=== PATIENT | male | born 1950 | race Hispanic/Latino ===

== ENCOUNTER 2018-04-06 17:08 | Emergency (ER) | payer MEDICARE ==
[2018-04-06 19:02] LABS: Hematocrit 39.2 % (35.5-45.6); Hemoglobin 13.8 gm/dl (11.8-15.2); Mean Corpuscular HGB Conc 35 % (32-34); Mean Corpuscular Hemoglobin 38 pg (28-32); Mean Corpuscular Volume 107 fl (84-94); Platelet Count 112 K/mm3 (140-440); Red Blood Count 3.65 M/mm3 (3.65-5.03); Red Cell Distribution Width 14.1 % (13.2-15.2)
[2018-04-06 19:14] LABS: INR 2.86 (0.87-1.13)
[2018-04-06 19:15] LABS: Partial Thromboplastin Time 41.7 Sec. (24.2-36.6)
[2018-04-06 19:35] LABS: BUN/Creatinine Ratio 23; Blood Urea Nitrogen 18 mg/dL (9-20); Calcium 8.6 mg/dL (8.4-10.2); Hemolysis Index 63
--- NOTE | 2018-04-06 19:41 | Cat Scan Report ---
FINAL REPORT PROCEDURE: CT HEAD/BRAIN WO CON TECHNIQUE: Computerized tomography of the head was performed without contrast material. HISTORY: headache x 5 days COMPARISON: No prior studies are available for comparison. FINDINGS: There is an isodense right frontoparietal subdural hemorrhage, which measures up to 6 millimeters in thickness. There are several foci of higher density, suggesting acute on chronic hemorrhage. There is also isodense subdural hemorrhage tracking along the anterior falx, measuring up to 5 millimeters in thickness. There is more acute appearing subdural hemorrhage tracking along the posterior falx, measuring up to 4 millimeters in thickness. There is a small amount of subdural hemorrhage in the left posterior parietal region. There is no significant underlying mass effect. No midline shift. There is no hydrocephalus. There is no CT evidence of acute territorial infarction. No parenchymal hemorrhage is seen. Calvarium is intact. Visualized paranasal sinuses and mastoids are aerated. IMPRESSION: Bilateral acute on subacute subdural hemorrhage, without significant underlying mass effect
--- NOTE | 2018-04-06 21:04 | Emergency Department Report ---
ED Headache HPI - General Chief Complaint: Headache Stated Complaint: HEADACHE Time Seen by Provider: 04/06/18 19:43 Source: patient Exam Limitations: no limitations - History of Present Illness Initial Comments: Mrs. Julio is a 68-year-old male who presents with 5 days of headache. He woke up on Tuesday morning with bitemporal headache. intense waxing and waning in intensity. Pain is now 5 out of 10. He the diet 3 weeks ago with [employer]. 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 He denies paralysis. Denies trauma. His last seizure was over 20 years ago. Timing/Duration: other (5 days) Quality: severe Head Injury Location: temporal Recent Head Trauma: no recent headache/trauma Associated Symptoms: fatigue, other (sluggish) Allergies/Adverse Reactions: Allergies No Known Allergies Allergy (Unverified 04/06/18 17:36) Home Medications: Ambulatory Orders oxyCODONE /ACETAMINOPHEN [Percocet 5/325] 1 tab PO Q6HR PRN #15 tablet 04/07/18 ED Review of Systems ROS: Stated complaint: HEADACHE Other details as noted in HPI Comment: All other systems reviewed and negative Constitutional: denies: fever, malaise Cardiovascular: denies: chest pain ED Past Medical Hx - Past Medical History Previous Medical History?: Yes Hx Deep Vein Thrombosis: Yes Hx Seizures: Yes Additional medical history: basal cell carcinoma. BPH. gastritis. gstrointestinal stromal tumor of small bowel, malignant - Surgical History Past Surgical History?: Yes Additional Surgical History: IVC filter - Social History Smoking Status: Never Smoker Substance Use Type: None - Medications Home Medications: Home Medications Medication Instructions Recorded Confirmed Last Taken Type oxyCODONE /ACETAMINOPHEN [Percocet 1 tab PO Q6HR PRN #15 tablet 04/07/18 Unknown Rx 5/325] ED Physical Exam - General Limitations: No Limitations General appearance: alert, in no apparent distress - Head Head exam: Present: atraumatic, normocephalic - Eye Eye exam: Present: normal appearance - ENT ENT exam: Present: mucous membranes moist - Neck Neck exam: Present: normal inspection - Respiratory Respiratory exam: Present: normal lung sounds bilaterally. Absent: respiratory distress, wheezes, rales, rhonchi - Cardiovascular Cardiovascular Exam: Present: regular rate, normal rhythm, normal heart sounds. Absent: systolic murmur, diastolic murmur, rubs, gallop - GI/Abdominal GI/Abdominal exam: Present: soft, normal bowel sounds. Absent: distended, tenderness, guarding, rebound - Rectal Rectal exam: Present: deferred - Extremities Exam Extremities exam: Present: normal inspection - Back Exam Back exam: Present: normal inspection - Neurological Exam Neurological exam: Present: alert, oriented X3, CN II-XII intact, normal gait. Absent: motor sensory deficit - Psychiatric Psychiatric exam: Present: normal affect, normal mood - Skin Skin exam: Present: warm, dry, intact, normal color. Absent: rash ED Course Vital Signs 04/06/18 04/06/18 17:36 20:07 Temperature 98.5 F 98.6 F Pulse Rate 66 70 Respiratory 16 18 Rate Blood Pressure 148/67 Blood Pressure 171/81 [Right] O2 Sat by Pulse 99 99 Oximetry ED Medical Decision Making - Lab Data Result diagrams: 04/06/18 18:54 04/06/18 18:54 Laboratory Results - last 24 hr 04/06/18 04/06/18 04/06/18 18:54 18:54 18:54 WBC 7.0 RBC 3.65 Hgb 13.8 Hct 39.2 MCV 107 H MCH 38 H MCHC 35 H RDW 14.1 Plt Count 112 L PT 32.0 H INR 2.86 H APTT 41.7 H Sodium 138 Potassium 4.6 Chloride 102.3 Carbon Dioxide 23 Anion Gap 17 BUN 18 Creatinine 0.8 Estimated GFR > 60 BUN/Creatinine Ratio 23 Glucose 172 H Calcium 8.6 Total Bilirubin Direct Bilirubin Indirect Bilirubin AST ALT Alkaline Phosphatase Total Protein Albumin Albumin/Globulin Ratio 04/06/18 18:54 WBC RBC Hgb Hct MCV MCH MCHC RDW Plt Count PT INR APTT Sodium Potassium Chloride Carbon Dioxide Anion Gap BUN Creatinine Estimated GFR BUN/Creatinine Ratio Glucose Calcium Total Bilirubin 0.70 Direct Bilirubin < 0.2 Indirect Bilirubin 0.5 AST 22 ALT 15 Alkaline Phosphatase 66 Total Protein 6.6 Albumin 3.9 Albumin/Globulin Ratio 1.4 Vital Signs - 24 hr 04/06/1818 17:36 20:07 Temperature 98.5 F 98.6 F Pulse Rate 66 70 Respiratory 16 18 Rate Blood Pressure 148/67 Blood Pressure 171/81 [Right] O2 Sat by Pulse 99 99 Oximetry - Radiology Data Radiology results: report reviewed Multiple small foci of subdural hemorrhage bilateral - Medical Decision Making Mrs. Mathur is a pleasant 68-year-old male with 5 days of headache bitemporal. Accidentally in intensity. He takes warfarin for bilateral DVT. He has spontaneous subdural hematoma bilateral small without mass effect. Dr. Painting neurosurgeon and [facility] recommended repeat CT scan in [address] is stable without change considering coagulation, Dr. Painting recommends f/u in clinic. He suggested DR. Kelley. Repeat head CT at 6 hours showed stable findings without change. Patient understands to follow-up with Dr. James Kelley. I have prescribed Percocet for pain. Critical Care Time: Yes (40) Critical care attestation.: If time is entered above; I have spent that time in minutes in the direct care of this critically ill patient, excluding procedure time. Patient required multiple reassessments. Multiple interventions. ED Disposition Clinical Impression: Subdural hematoma, Warfarin anticoagulation, Headache Disposition: DC- TO HOME OR SELFCARE Is pt being admited?: No Does the pt Need Aspirin: No Condition: Stable Instructions: Subdural Hematoma (ED) Additional Instructions: Please follow-up with neurosurgeon at [facility] Dr. James Kelley number [phone] Prescriptions: oxyCODONE /ACETAMINOPHEN [Percocet 5/325] 1 tab PO Q6HR PRN #15 tablet PRN Reason: Pain Referrals: PRIMARY CARE, [Primary Care Provider] - 3-5 Days Time of Disposition: 01:58
[2018-04-06 21:33] LABS: Alanine Aminotransferase 15 units/L (7-56); Albumin 3.9 g/dL (3.9-5)
[2018-04-06 21:36] LABS: Bilirubin,Direct < 0.2 mg/dL (0-0.2)
--- NOTE | 2018-04-07 01:20 | Cat Scan Report ---
FINAL REPORT EXAM: CT HEAD/BRAIN WO CON HISTORY: subdural hematoma repeat COMPARISON: CT of the head from April 06, 2018. TECHNIQUE: Contiguous axial images were obtained. FINDINGS: There is stable acute on subacute bilateral subdural hematomas along the cerebral convexities. No significant mass effect. Collection along the right cerebral convexity measures up to 5 millimeters in greatest thickness and on the left measures up to 5-6 millimeters in greatest thickness. No midline shift. Thin subdural hemorrhage along the falx measuring 5 millimeters. Trace subdural hemorrhage along the tentorium. No acute intraparenchymal hemorrhage. Stable mild volume loss and chronic small vessel ischemic disease. Calcification bilateral basal ganglia and benign scattered calcifications within white matter. Mild mucosal thickening the paranasal sinuses. Mastoid air cells are clear. Calvarium is grossly intact. Ocular globes are grossly unremarkable. IMPRESSION: Stable acute on subacute subdural hematomas along the cerebral convexities, falx, and tentorial leaf. No associated mass effect. No acute intraparenchymal hemorrhage. Stable mild volume loss and chronic small vessel ischemic disease.
[2018-04-07 02:15] VITALS: BP 136/78
== END 2018-04-07 02:15 | disposition home or self-care (01) ==
LOC: ED 17:08
DX: S06.5X0A Traumatic subdural hemorrhage without loss of consciousness, initial encounter (principal); Z86.718 Personal history of other venous thrombosis and embolism; X58.XXXA Exposure to other specified factors, initial encounter; Y93.89 Activity, other specified; Y92.89 Other specified places as the place of occurrence of the external cause; Y99.8 Other external cause status
CPT/HCPCS: 36415; 70450; 80048; 80074; 85027; 85610; 85730; 99291

== ENCOUNTER 2022-07-15 09:15 | Emergency (ER) | payer MEDICARE ==
[2022-07-15] MEDS ORDERED: TETANUS,DIPH,PERTUSS(ACELL) VACCINE 0.5 ML SYRINGE IM ONE (11:40)
[2022-07-15] MEDS ORDERED: ACETAMINOPHEN W/CODEINE 300-30 MG TAB PO ONE (11:40)
[2022-07-15] MEDS ORDERED: SULFAMETHOXAZOLE/TRIMETHOPRIM 800/160MG DS TAB PO ONE (11:41)
[2022-07-15] MEDS ORDERED: NEOMY 3.5 MG/BACIT 400 UNITS/POLY B 5000 UNITS/GM OINT PACKET TP ONE (11:45)
--- NOTE | 2022-07-15 11:45 | Emergency Department Report ---
ED Extremity Problem HPI - General Chief complaint: Extremity Problem,Nontraumatic Stated complaint: BLISTER ON LEGS Time Seen by Provider: 07/15/22 09:54 Source: patient Mode of arrival: Ambulatory Limitations: Physical Limitation - History of Present Illness Initial comments: 72-year-old white female with past medical history of DVT, cancer, and seizure disorder presents to the emergency department for evaluation of wound to left lower leg. He states that 3 to 4 days ago, he was cooking and some grease splashed on his hands and lower leg. He states that he later developed blister to left lower leg that has since opened up and now he has an open sore to area. He states that he has noticed small amount of purulent drainage from area. He denies fever, abdominal pain, nausea, and vomiting, but states that he has 6 out of 10 pain to the area. MD Complaint: extremity pain, extremity swelling -: Gradual, days(s) (3-4) Location: left, lower extremity History of Same: No -: No myalgia, No arthralgia, No fever, No associated dyspnea, No associated chest pain Radiation: none Severity scale (0 -10): 6 Quality: aching Consistency: constant Associated Symptoms: denies: chest pain, shortness of breath, fever, myalgias, arthralgias, rash - Related Data Previous Rx's Medication Instructions Recorded Last Taken Type oxyCODONE /ACETAMINOPHEN [Percocet 1 tab PO Q6HR PRN #15 tablet 04/07/18 Unknown Rx 5/325] Acetaminophen/Codeine [Tylenol 1 tab PO Q6H PRN #12 tab 07/15/22 Unknown Rx /Codeine # 3 tab] Mupirocin [Bactroban 2%] 1 applic TP BID #1 tube 07/15/22 Unknown Rx Sulfamethoxazole/Trimethoprim 1 each PO BID 7 Days #14 tab 07/15/22 Unknown Rx [Bactrim DS TAB] Allergies Allergy/AdvReac Type Severity Reaction Status Date / Time No Known Allergies Allergy Verified 07/15/22 09:39 ED Review of Systems ROS: Stated complaint: BLISTER ON LEGS Other details as noted in HPI Comment: All other systems reviewed and negative Constitutional: denies: chills, fever ENT: denies: congestion Respiratory: denies: shortness of breath Cardiovascular: denies: chest pain, palpitations Gastrointestinal: denies: abdominal pain, nausea, vomiting Musculoskeletal: back pain Neurological: denies: headache, weakness ED Past Medical Hx - Past Medical History Hx Deep Vein Thrombosis: Yes Hx Seizures: Yes Additional medical history: basal cell carcinoma. BPH. gastritis. gstrointestinal stromal tumor of small bowel, malignant - Surgical History Additional Surgical History: IVC filter - Social History Smoking Status: Never Smoker Substance Use Type: None - Medications Home Medications: Home Medications Medication Instructions Recorded Confirmed Last Taken Type oxyCODONE /ACETAMINOPHEN [Percocet 1 tab PO Q6HR PRN #15 tablet 04/07/18 Unknown Rx 5/325] Acetaminophen/Codeine [Tylenol 1 tab PO Q6H PRN #12 tab 07/15/22 Unknown Rx /Codeine # 3 tab] Mupirocin [Bactroban 2%] 1 applic TP BID #1 tube 07/15/22 Unknown Rx Sulfamethoxazole/Trimethoprim 1 each PO BID 7 Days #14 tab 07/15/22 Unknown Rx [Bactrim DS TAB] ED Physical Exam - General Limitations: Physical Limitation General appearance: alert, in no apparent distress - Head Head exam: Present: atraumatic, normocephalic - Eye Eye exam: Present: normal appearance. Absent: conjunctival injection, periorbital swelling, periorbital tenderness - Neck Neck exam: Present: normal inspection. Absent: tenderness, lymphadenopathy - Respiratory Respiratory exam: Present: normal lung sounds bilaterally. Absent: respiratory distress, wheezes, rales - Cardiovascular Cardiovascular Exam: Present: regular rate, normal heart sounds - GI/Abdominal GI/Abdominal exam: Present: soft, normal bowel sounds. Absent: distended, tenderness, guarding, rebound, rigid - Expanded Lower Extremity Exam Left Lower Leg exam: Present: full ROM, tenderness, swelling, erythema. Absent: normal inspection (Open blister 6 cm x 12 cm noted to the leg. Small amount of purulent drainage noted. Erythema noted around the entire surface of open blister. Swelling noted to the entire leg.), abrasion, laceration Ankle exam: Present: swelling Foot/Toe exam: Present: normal inspection Neuro vascular tendon exam: Present: no vascular compromise. Absent: pulse defi cit, abnormal cap refill, extremity cold to touch, pallor Gait: Positive: observed and normal - Back Exam Back exam: Present: normal inspection. Absent: CVA tenderness (R), CVA tenderness (L) - Neurological Exam Neurological exam: Present: alert, oriented X3 - Psychiatric Psychiatric exam: Present: normal affect, normal mood - Skin Skin exam: Present: warm, dry, normal color ED Course Vital Signs 07/15/22 09:32 Temperature 97.9 F Pulse Rate 82 Blood Pressure 120/65 [Left] O2 Sat by Pulse 97 Oximetry ED Medical Decision Making - Medical Decision Making 72-year-old white female with past medical history of DVT, cancer, and seizure disorder presents to the emergency department for evaluation of wound to left lower leg. He states that 3 to 4 days ago, he was cooking and some grease splashed on his hands and lower leg. He states that he later developed blister to left lower leg that has since opened up and now he has an open sore to area. He states that he has noticed small amount of purulent drainage from area. He denies fever, abdominal pain, nausea, and vomiting, but states that he has 6 out of 10 pain to the area. Physical exam consistent with left lower extremity cellulitis. Tdap updated. Patient be discharged home with 7-day course of Bactrim along with Tylenol 3 to use as needed for pain. He is advised to take medications as prescribed and follow-up with his primary care provider if no improvement or worsening symptoms. He is advised to return to the emergency department if he develops fever or any worsening symptoms. He verbalizes understanding of and agreement with plan of care. Critical care attestation.: If time is entered above; I have spent that time in minutes in the direct care of this critically ill patient, excluding procedure time. ED Disposition Clinical Impression: Left leg cellulitis Disposition: 01 HOME / SELF CARE / HOMELESS Is pt being admited?: No Does the pt Need Aspirin: No Condition: Stable Instructions: Cellulitis, Adult, [id number] Additional Instructions: Take medications as prescribed. Follow up with your primary care provider if no improvement or worsening symptoms. Return to ed if you develop fever and as needed. Prescriptions: Sulfamethoxazole/Trimethoprim [Bactrim DS TAB] 1 each PO BID 7 Days #14 tab Mupirocin [Bactroban 2%] 1 applic TP BID #1 tube Acetaminophen/Codeine [Tylenol /Codeine # 3 tab] 1 tab PO Q6H PRN #12 tab PRN Reason: Pain , Severe (7-10) Referrals: CARBUCCIA,WILFRID, MD [Staff Physician] - 3-5 Days Time of Disposition: 11:44
[2022-07-15 13:13] VITALS: BP 143/85
== END 2022-07-15 13:13 | disposition home or self-care (01) ==
LOC: ED 09:15
DX: L03.116 Cellulitis of left lower limb (principal); Z86.718 Personal history of other venous thrombosis and embolism; Z79.899 Other long term (current) drug therapy
CPT/HCPCS: 90471; 90715; 99282

== ENCOUNTER 2022-07-28 08:45 | Outpatient (CLI) | payer MEDICARE ==
[2022-07-28] MEDS ORDERED: LIDOCAINE (4%) 40 MG/ML TOPICAL SOLN 50 ML BOTTLE TP ONE (09:10)
== END 2022-07-28 08:46 | disposition home or self-care (01) ==
LOC: WOUND 08:45
PROVIDERS: ATTEND Surgery
DX: I87.312 Chronic venous hypertension (idiopathic) with ulcer of left lower extremity (principal); E11.622 Type 2 diabetes mellitus with other skin ulcer; L97.822 Non-pressure chronic ulcer of other part of left lower leg with fat layer exposed; N40.0 Benign prostatic hyperplasia without lower urinary tract symptoms; E66.9 Obesity, unspecified; Z68.41 Body mass index [BMI] 40.0-44.9, adult; Z86.718 Personal history of other venous thrombosis and embolism; Z79.899 Other long term (current) drug therapy
CPT/HCPCS: 99214; G0463

== ENCOUNTER 2022-08-04 13:31 | Outpatient (CLI) | payer MEDICARE ==
[2022-08-04] MEDS ORDERED: LIDOCAINE (4%) 40 MG/ML TOPICAL SOLN 50 ML BOTTLE TP ONE (14:10)
== END 2022-08-04 13:32 | disposition home or self-care (01) ==
LOC: WOUND 13:31
PROVIDERS: ATTEND Surgery
DX: I87.312 Chronic venous hypertension (idiopathic) with ulcer of left lower extremity (principal); E11.622 Type 2 diabetes mellitus with other skin ulcer; L97.822 Non-pressure chronic ulcer of other part of left lower leg with fat layer exposed; N40.0 Benign prostatic hyperplasia without lower urinary tract symptoms; E66.01 Morbid (severe) obesity due to excess calories; Z68.41 Body mass index [BMI] 40.0-44.9, adult; Z86.718 Personal history of other venous thrombosis and embolism; Z79.899 Other long term (current) drug therapy

== ENCOUNTER 2022-08-11 08:24 | Outpatient (CLI) | payer MEDICARE | END 2022-08-11 08:25 | disposition home or self-care (01) | LOC: WOUND 08:24 | PROVIDERS: ATTEND Surgery | DX: I87.312 Chronic venous hypertension (idiopathic) with ulcer of left lower extremity (principal); E11.622 Type 2 diabetes mellitus with other skin ulcer; L97.821 Non-pressure chronic ulcer of other part of left lower leg limited to breakdown of skin; E11.628 Type 2 diabetes mellitus with other skin complications; N40.0 Benign prostatic hyperplasia without lower urinary tract symptoms; E66.01 Morbid (severe) obesity due to excess calories; Z68.41 Body mass index [BMI] 40.0-44.9, adult; Z86.718 Personal history of other venous thrombosis and embolism; Z85.09 Personal history of malignant neoplasm of other digestive organs; Z79.899 Other long term (current) drug therapy | CPT/HCPCS: 99213; G0463 ==